=== PATIENT | female | born 1970 | race Caucasian/White ===

== ENCOUNTER 2017-05-16 13:47 | Emergency (ER) | payer MEDICAID ==
[~2017-05-16] VITALS: Ht 157.5 cm; Wt 65.0 kg
[2017-05-16 13:52] VITALS: Ht 157.5 cm; Wt 65.0 kg
[2017-05-16] MEDS ORDERED: ONDANSETRON (ODT) 4 MG TAB ODT STA (15:44)
[2017-05-16] MEDS ORDERED: MECLIZINE 12.5 MG TAB PO ONE (16:00)
[2017-05-16] MEDS ORDERED: MECL12.574 PO (16:45)
[2017-05-16] MEDS ORDERED: AMOX500C2 PO (16:45)
--- NOTE | 2017-05-18 14:51 | ERD ---
ER Documentation Chief Complaint Date/Time DATE: 05/18/17 TIME: 14:47 Chief Complaint Complains of nausea and dizziness x 3 days HPI The patient is a 47-year-old female otherwise healthy presenting to the emergency department with complaints of vertigo-like symptoms with the room spinning associated with nausea lasting about 1 minute and then spontaneously resolving. This is been ongoing for the past 3 days. She only notices the sensation when she moves her head rapidly. She has taken no medication for relief of symptoms. She has had the symptoms in the past and they resolved on their own without medication. She denies fevers, chills, syncope, chest pain, shortness of breath, or other symptoms currently. ROS All systems reviewed and are negative except as per history of present illness. Medications Home Meds Active Scripts Amoxicillin* (Amoxicillin*) 500 Mg Cap, 500 MG PO BID for 10 Days, #20 CAP Prov:LUDIVINA PAULINO PA-C 05/16/17 Meclizine Hcl* (Antivert*) 12.5 Mg Tab, 12.5 MG PO Q6H Y for DIZZINESS, #20 TAB Prov:LUDIVINA PAULINO PA-C 05/16/17 Allergies Allergies: Coded Allergies: No Known Allergy (Unverified , 05/16/17) PMhx/Soc Medical and Surgical Hx: pt denies Medical Hx, pt denies Surgical Hx History of Surgery: No Anesthesia Reaction: No Hx Neurological Disorder: No Hx Respiratory Disorders: No Hx Cardiac Disorders: No Hx Psychiatric Problems: No Hx Miscellaneous Medical Probl: No Hx Alcohol Use: No Hx Substance Use: No Hx Tobacco Use: No Smoking Status: Never smoker Physical Exam Vitals Vital Signs Date Time Temp Pulse Resp B/P Pulse Ox O2 Delivery O2 Flow Rate FiO2 05/16/17 13:52 98.2 82 20 167/81 98 Physical Exam Const: Nontoxic, well-appearing female in no acute distress. Head: Atraumatic Eyes: Normal Conjunctiva. Extraocular movements intact bilaterally. No horizontal nystagmus noted. ENT: Normal External Ears, Nose and Mouth. Mild erythema noted to the left tympanic membrane but no bulging. The right tympanic membrane is normal on exam. Neck: Full range of motion..~ No meningismus. Resp: Clear to auscultation bilaterally Cardio: Regular rate and rhythm, no murmurs Skin: No petechiae or rashes Back: No midline or flank tenderness Ext: No cyanosis, or edema Neur: Awake and alert Psych: Normal Mood and Affect Results 24 hrs Current Medications Medications (Trade) Dose Ordered Sig/Polly Route PRN Reason Start Time Stop Time Status Last Admin Dose Admin Meclizine HCl (Antivert) 25 mg ONCE ONCE PO 05/16/17 16:00 05/16/17 16:01 DC 05/16/17 15:53 Ondansetron HCl (Zofran Odt) 4 mg ONCE STAT ODT 05/16/17 15:44 05/16/17 15:46 DC 05/16/17 15:53 Procedures/MDM 47-year-old female presenting to the emergency department for vertigo symptoms. History and physical examination is consistent with a benign positional vertigo. I have low suspicion for CVA, TIA, central cause for vertigo, or other emergent conditions. The patient was treated in the department with meclizine and Zofran and she was feeling improved prior to discharge. She was given prescriptions for amoxicillin for possible left-sided otitis media as well as meclizine for dizziness. She was advised to return immediately if her symptoms worsen or she has any new symptoms. She agreed with the discharge plan and diagnosis. Close follow-up with the primary care physician was advised. The patient's blood pressure was elevated (>120/80) but appears stable without evidence of hypertension emergency or urgency. The patient was counseled about the risks of hypertension and urged to pursue outpatient monitoring and therapy within a week with their primary care physician. Departure Diagnosis: Primary Impression: Vertigo Additional Impression: Otitis media Otitis media type: unspecified Chronicity: acute Laterality: unspecified laterality Qualified Code: H66.90 - Acute otitis media, unspecified laterality , unspecified otitis media type Condition: Stable Patient Instructions: Inner Ear Problems: Causes of Dizziness (Vertigo), Otitis Media, Abx Tx (Adult), Vertigo, Unspecified [facility]: [facility] Usted se tang hecho un examen mdico de control que le indica que no est en serafin condicin que requiera tratamiento urgente en el Departamento de Emergencia. Un estudio ms profundo y el tratamiento de baires condicin pueden esperar sin ningn riesgo hasta que usted sea atendida/o en el consultorio de baires mdico o serafin cl eleni. Es responsabilidad suya arreglar serafin daniel para el seguimiento del pelon. MANEJO DE CONDICIONES NO URGENTES EN EL FUTURO 1) Si usted tiene un mdico de atencin primaria: Usted debera llamar a baires mdico de atencin primaria antes de venir al departamento de emergencia. Despus de las horas de consultorio, baires doctor o baires asociado/a est disponible por telfono. El mdico o enfermero de susan en el servicio telefnico puede asesorarle por tressa medio para atender el problema, o pelon contrario se puede programar serafin daniel. 2) Si usted no tiene un mdico de atencin primaria: Llame al mdico o clnica de referencia que aparece abajo angie las horas de consultorio para hacer serafin daniel para que le vean. CLINICAS: [facility] [phone] [facility] [phone] [facility]. [facility] [phone] [facility] [facility] [phone] [facility]. [facility] [phone] [address] [facility]. [phone] [address] Additional Instructions: No mas mejor en 2-3 moreno, regresar. Mas peor en 24 horas, regresear rapidamente. Ir a doctor primario in 5-7 moreno. Usar instrucciones cuando pamela medicamento. LUDIVINA PAULINO PA-C May 18, 2017 14:51
== END 2017-05-16 17:41 | disposition home or self-care (01) ==
LOC: FTE 13:47
DX: R42 Dizziness and giddiness (principal); H66.92 Otitis media, unspecified, left ear; R11.0 Nausea
CPT/HCPCS: Z7502; Z7610; 99283